=== PATIENT | female | born 1990 | race African-American/Black ===

== ENCOUNTER 2022-12-18 10:39 | Emergency (ER) | payer OTHER, SELFPAY ==
[2022-12-18] VITALS (9 sets, daily range): BP systolic 106–151; BP diastolic 63–93; PULSE 88–98; RESP 14; TEMP 36.8; O2SAT 98–100; BMI 27.4
--- NOTE | 2022-12-18 10:46 | DI.CT.S_ITS ---
PROCEDURE: CT HEAD/BRAIN WO CON INDICATIONS: severe headache TECHNIQUE: Noncontrast 4.5 mm thick angled axial sections acquired from the foramen magnum to the vertex, with coronal and sagittal reformats. For radiation dose reduction, the following was used: automated exposure control, adjustment of mA and/or kV according to patient size. COMPARISON: None. FINDINGS: Image quality: Excellent. CSF spaces: Basal cisterns are patent. No extra-axial fluid collections. Ventricles are normal in size and shape. Brain: No midline shift. No intracranial masses or hemorrhage. Gutierrez-white matter interface is normal. Skull and face: Apparent scalp laceration can be seen posteriorly, with bandaging material. No calvarial fracture is seen. Calvarium and visualized facial bones are intact, without suspicious lesions. Sinuses: Visualized sinuses and mastoids are clear. IMPRESSION: No acute intracranial hemorrhage is seen. No acute intracranial process is seen. Apparent scalp laceration present posteriorly. Dictated by: David Rodriguez M.D. on 12/18/2022 at 10:24 Approved by: David Rodriguez M.D. on 12/18/2022 at 10:25
--- NOTE | 2022-12-18 10:48 | ED.NEUROSD ---
HPI - Neuro Symptoms/Deficit General Chief Complaint: Headache Stated Complaint: intense headache mem loss Time Seen by Provider: 12/18/22 10:46 History of Present Illness HPI Narrative: 32-year-old female nonsmoker without chronic medical history presents with her significant other and a chief complaint of a gradually worsening severe frontal headache that has been worsening since yesterday. She states she has had no trauma or injury, no fever or chills and denies neck pain. She denies blurred vision, trouble with speech or extremity numbness, tingling or weakness. She does get headaches but states this is more severe than normal. She denies any medication or dietary change. She denies the use of blood thinners. She states that she is been having trouble with memory issues for some time and saw her primary care provider few days ago and has a referral in place for a neurology appointment sometime in the next week Related Data Allergies Allergy/AdvReac Type Severity Reaction Status Date / Time No Known Drug Allergies Allergy Verified 12/18/22 10:47 Review of Systems Review of Systems Narrative: GENERAL: Denies chills, fatigue, malaise, fever, sweats. HEENT: Denies sinus pain, ear pain, sore throat, difficulty swallowing, dizziness. RESPIRATORY: Denies dyspnea, cough, wheezing, hemoptysis, sputum. CARDIOVASCULAR: Denies chest pain, palpitations, orthopnea, edema, GASTROINTESTINAL: Denies nausea, vomiting, abdominal pain, diarrhea, constipation, melena. : Denies dysuria, frequency, incontinence, hematuria, urinary retention. MUSCULOSKELETAL: denies weakness, joint pain, or bony pain SKIN: Denies rash, skin lesions, or other NEUROLOGIC: See HPI PSYCHIATRIC: No concerning psychosocial issues. 12 point review of systems is negative except for those stated above Patient History Social History Smoking Status: Unknown if ever smoked Exam Narrative Exam Narrative: GENERAL: [32] year old patient appears stated age. Well-developed patient, in mild distress. Obviously uncomfortable HEAD: Atraumatic. Normocephalic. EYES: Pupils equal round and reactive. Extraocular motions intact. No scleral icterus. No injection or drainage. ENT: Nose without bleeding, purulent drainage. Throat without erythema, tonsillar hypertrophy or exudate. Airway patent. NECK: Trachea midline. Non tender CARDIOVASCULAR: Regular rate and rhythm without murmurs, gallops, or rubs. RESPIRATORY: Clear to auscultation. Breath sounds equal bilaterally. No wheezes, rales, or rhonchi. GASTROINTESTINAL: Abdomen soft, non-tender, nondistended. EXTREMITIES: No edema or joint tenderness. BACK: Nontender without deformity or crepitance. No flank tenderness. NEURO: AOx3. SKIN: No rash or erythema of visible areas NIH Stroke Scale 1a. LOC: Patient is alert and keenly responsive (0) 1b. LOC Questions: Patient answers both LOC questions accurately (0) 1c. LOC Commands: Patient performs both tasks correctly (0) 2. Best Gaze: Normal (0) 3. Visual: No visual loss (0) 4. Facial palsy: Normal symmetrical movements (0) 5. Motor arm: No drift (0) 6. Motor leg: No drift (0) 7. Limb ataxia: Absent (0) 8. Sensory: Normal (0) 9. Best language: No aphasia; normal (0) 10. Dysarthria: Normal (0) 11. Extinction and inattention: No abnormality (0) NIHSS: 0 Initial Vital Signs Initial Vital Signs: Vital Signs Temperature 98.2 F 12/18/22 10:40 Pulse Rate 98 H 12/18/22 10:40 Respiratory Rate 14 12/18/22 10:40 Blood Pressure 144/80 H 12/18/22 10:40 Pulse Oximetry 98 12/18/22 10:40 Oxygen Delivery Method Room Air 12/18/22 10:40 Course Orders Ordered: Discontinued Medications Sodium Chloride (Normal Saline 0.9%) 1,000 mls @ 1,000 mls/hr IV BOLUS ONE Stop: 12/18/22 11:45 Last Infusion: 12/18/22 12:45 Dose: 0 mls/hr Documented By: Infusion: 12/18/22 11:24 Dose: 1,000 mls/hr Documented By: Infusion: 12/18/22 11:10 Dose: 0 mls/hr Documented By: Admin: 12/18/22 11:01 Dose: 1,000 mls/hr Documented By: JESSICA Ketorolac Tromethamine (Ketorolac 30 Mg/Ml Vial) 15 mg IV NOW ONE Stop: 12/18/22 11:30 Last Admin: 12/18/22 11:44 Dose: 15 mg Documented By: JESSICA Metoclopramide HCl (Metoclopramide 10 Mg/2 Ml Inj) 10 mg IV NOW ONE Stop: 12/18/22 10:47 Last Admin: 12/18/22 11:00 Dose: 10 mg Documented By: JESSICA MDM - Neuro Symptoms/Deficit Lab Data 12/18/22 10:50 12/18/22 10:50 Labs: Lab Results 12/18/22 12/18/22 Range/Units 10:50 10:50 WBC 7.7 (4.5-11.0) X10^3/uL RBC 4.17 (4.0-5.2) X10^6/uL Hgb 11.7 L (12.0-16.0) g/dL Hct 34.2 L (36-46) % MCV 82.0 (80-100) fL MCH 27.9 (26-34) PG MCHC 34.1 (30-36) % RDW 13.0 (11.6-14.8) % Plt Count 274 (150-400) X10^3/uL Neut % (Auto) 54.9 (50-75) % Lymph % (Auto) 27.9 (25-40) % [place] % (Auto) 15.5 H (3-14) % Eos % (Auto) 0.6 L (2-4) % Baso % (Auto) 1.1 (0-2) % Neut # (Auto) 4200 (1874-1706) /uL Lymph # (Auto) 2200 (3280-6491) /uL [place] # (Auto) 1200 H (0-900) /uL Eos # (Auto) 0 (0-450) /uL Baso # (Auto) 100 (0-100) /uL Sodium 137 (137-145) mmol/L Potassium 3.4 (3.4-5.1) mmol/L Chloride 104 (98-107) mmol/L Carbon Dioxide 26 (22-32) mmol/L BUN 8 (7-17) mg/dL Creatinine 0.59 (0.52-1.04) mg/dL Estimated GFR > 60 (>60) mL/min BUN/Creatinine Ratio 13.6 (6-22) Glucose 96 (70-100) mg/dL Calcium 9.0 (8.4-10.2) mg/dL Total Bilirubin 0.4 (0.2-1.3) mg/dL AST 23 (14-36) IU/L ALT 17 (<35) IU/L Alkaline Phosphatase 66 (38-126) U/L Total Protein 8.0 (6.3-8.2) g/dL Albumin 4.4 (3.5-5.0) g/dL Globulin 3.6 (1.7-4.1) g/dL Albumin/Globulin Ratio 1.2 (1.0-2.8) MDM Narrative Medical decision making narrative: [32] year old patient presents with frontal headache Headache considerations include, but not limited to: Subarachnoid hemorrhage, but unlikely as patient denies sudden onset of pain, not worst of life, or neck pain Meningitis considered, but thought unlikely given lack of Brudzinski's, Kernig's sign, altered mental status or fever Giant cell arteritis considered, but thought unlikely given lack of unilateral findings, pain in lutheran, vision change HTN Emergency considered, but thought unlikely given normal vitals Other serious diagnoses considered unlikely given lack of red flag findings such as sudden onset, increasing frequency, immunocompromise, systemic signs (fever, chills, stiff neck, or rash), focal neurologic findings, trauma, blood thinners, etc. No prior charts are available Primary Historian: patient Labs reviewed and interpreted by myself: No leukocytosis or left shift, no anemia, electrolytes and renal function within normal Imaging reviewed: CT of head ordered given severe headache. No intracranial findings Patient's symptoms improved over duration of stay with above-stated therapies. As noted above multiple diagnoses considered. Migraine or migraine equivalent considered most likely given history, physical exam, response to therapies Findings and discharge diagnosis discussed with patient/family followed by verbalization of understanding Return precautions discussed with patient/family whom verbalize understanding of diagnosis and plan Discharge Plan Departure Patient Disposition: Home Clinical Impression: Migraine Instructions: DI for Migraine Activity Restrictions/Additional Instructions: *You have been diagnosed with [ Headache ] *What to do: *Take medications as directed *Follow up with your primary care provider in 2-3 days, call for an appointment. Let them know you were seen in the Emergency Department and that we ask that you be seen in follow up *Return to ER if you should have any new, worsening or concerning symptoms, such as [ fever > 101F, neck pain or stiffness, vomiting, confusion, seizure, focal weakness, vision change, speech deficit or other concerning symptoms ] Referrals: ProviderAlbert [Primary Care Provider] - Stand Alone Forms: Patient Portal/API, Work Release Note
[2022-12-18 10:59] LABS: Add Manual Diff / Slide Review NO; Basophils Absolute Auto 100 /uL (0-100); Basophils Percent Auto 1.1 % (0-2); Eosinophils Absolute Auto 0 /uL (0-450); Eosinophils Percent Auto 0.6 % (2-4); Hematocrit 34.2 % (36-46); Hemoglobin 11.7 g/dL (12.0-16.0); Lymphocytes Absolute Auto 2200 /uL (1100-4500); Lymphocytes Percent Auto 27.9 % (25-40); Mean Corpuscular HGB Conc 34.1 % (30-36); Mean Corpuscular Hemoglobin 27.9 PG (26-34); Monocytes Absolute Auto 1200 /uL (0-900); Monocytes Percent Auto 15.5 % (3-14); Neutrophils Absolute Auto 4200 /uL (1500-7000); Neutrophils Percent Auto 54.9 % (50-75); Platelet Count 274 X10^3/uL (150-400); Red Blood Cell Count 4.17 X10^6/uL (4.0-5.2); White Blood Cell Count 7.7 X10^3/uL (4.5-11.0)
[2022-12-18] MEDS: METOCLOPRAMIDE 10 MG/2 ML INJ IV (11:00)
[2022-12-18] MEDS: SODIUM CHLORIDE 0.9% 1,000 ML 1000 ML IV (11:01)
[2022-12-18 11:17] LABS: Alanine Aminotransferase 17 IU/L (<35); Albumin 4.4 g/dL (3.5-5.0); Albumin Globulin Ratio 1.2 (1.0-2.8); Alkaline Phosphatase 66 U/L (38-126); Aspartate Aminotransferase 23 IU/L (14-36); BUN Creatinine Ratio 13.6 (6-22); Bilirubin Total 0.4 mg/dL (0.2-1.3); Blood Urea Nitrogen 8 mg/dL (7-17); Carbon Dioxide 26 mmol/L (22-32); Chloride 104 mmol/L (98-107); Estimated Glomerular Filt Rate > 60 mL/min (>60); Globulin 3.6 g/dL (1.7-4.1); Glucose 96 mg/dL (70-100); HEMOLYSIS < 15 (0-50); Potassium 3.4 mmol/L (3.4-5.1); Sodium 137 mmol/L (137-145)
[2022-12-18] MEDS: KETOROLAC 30 MG/ML VIAL 15 MG IV (11:44)
== END 2022-12-18 12:59 | disposition home or self-care (01) ==
PROVIDERS: Emergency Provider Emergency Medicine
DX: G43.909 Migraine, unspecified, not intractable, without status migrainosus (principal)
CPT/HCPCS: 36415; 70450; 80053; 85025; 96361; 96374; 96375; 99284; J1885; J2765

== ENCOUNTER 2024-11-09 12:29 | Emergency (ER) | payer OTHER, SELFPAY ==
--- NOTE | 2024-11-09 12:45 | ED.GENADULT ---
HPI - General Adult <Thanh Gilliam MD - Last Filed: 11/13/24 18:31> General Chief complaint: Psychiatric Symptoms Stated complaint: SI Time Seen by Provider: 11/09/24 12:45 History of Present Illness HPI narrative: This is a 34-year-old female here for mental health evaluation. Patient has a history of depression and had a follow-up visit with her psychiatrist today to discuss her symptoms as well as refill on medications. She was prescribed 2 antidepressants in September and unfortunately missed an appointment last month and was not able to fill the prescription and has been off for at least a month. She reports that the medications did not help with her depression and actually caused side effects of making her excessively sleepy and feeling like a zombie. She has never been on psychiatric medications in the past. At her visit with her psychiatrist today, she reported suicidal ideation and was sent to the emergency room for further evaluation. Her psychiatrist had contacted [facility] for a planned transfer for inpatient psychiatric care. Patient does admit to suicidal ideation at least a few weeks ago and did not want to disclose the method by which she would carry that out. She reports increasing her alcohol intake recently and currently drinking 3 to 4 times a week, 3-4 shots of Tequila per session. She denies any illicit drug use. She currently is and their relationship is good. She denies fever, cough, congestion, chest pain, shortness of breath. She does admit to intermittent abdominal pain today although none currently. She has vomited 4 times. She reports no bowel movement for 2-3 weeks although did have diarrhea today. She denies taking stool softeners earlier today. Last menstrual period was 2-3 weeks ago. She is not on any control. . No dysuria. Related Data Allergies Allergy/AdvReac Type Severity Reaction Status Date / Time No Known Drug Allergies Allergy Verified 12/18/22 10:47 Review of Systems <Thanh Gilliam MD - Last Filed: 11/13/24 18:31> Review of Systems ROS Unobtainable: All systems reviewed & are unremarkable except as noted in HPI and below Patient History <Thanh Gilliam MD - Last Filed: 11/13/24 18:31> alcohol intake frequency: holidays/special occasions only Exam <Thanh Gilliam MD - Last Filed: 11/13/24 18:31> Narrative Exam Narrative: Focused physical exam as follows: General: Well developed, well nourished HEENT: pink palpebral conjunctiva, anicteric sclera, LIYAH, moist mucous membranes Lungs; no respiratory distress, clear to auscultation without wheezes or crackles; equal breath sounds Heart: normal rate, regular rhythm, no appreciable murmurs Abdomen: soft, nontender, no rebound or rigidity Extremities: no pedal edema Neuro: AAOx3, GCS 15, nonfocal exam Psyche: suicidal ideation; depression, auditory hallucinations Initial Vital Signs Initial Vital Signs: Vital Signs Temperature 97.1 F L 11/09/24 12:47 Pulse Rate 99 H 11/09/24 12:47 Respiratory Rate 20 11/09/24 12:47 Blood Pressure 140/77 11/09/24 12:47 Pulse Oximetry 99 11/09/24 12:47 Oxygen Delivery Method Room Air 11/09/24 12:47 <Ashleigh Brandt MD - Last Filed: 11/09/24 21:31> Initial Vital Signs Initial Vital Signs: Vital Signs Temperature 97.1 F L 11/09/24 12:47 Pulse Rate 99 H 11/09/24 12:47 Respiratory Rate 20 11/09/24 12:47 Blood Pressure 140/77 11/09/24 12:47 Pulse Oximetry 99 11/09/24 12:47 Oxygen Delivery Method Room Air 11/09/24 12:47 Course <Thanh Gilliam MD - Last Filed: 11/13/24 18:31> Course Course Narrative: Pt arrived and was initially evaluated by MANAGER WAREHOUSE - she disclosed auditory hallucinations and recent SI. Charge Nurse had spoken to pt's psychiatrist who expressed serious concerns regarding pt's depression and SI and recommended transfer to [facility] for inpt psyche treatment. Pt is voluntary. Medical screening exam done. Work up initiated. Labs unremarkable. Pt medically cleared and SW informed. [id number] - awaiting [facility] doc to doc call for transfer acceptance Discussed case with Capt Mita @ [facility] - accepts pt. Transferred care to Dr. Brandt @ [phone] with disposition pending. Thanh Gilliam MD 11/09/24 5023 Orders Ordered: ED Orders 11/09/24 12:47 Consult to MANAGER WAREHOUSE - Buffet Server Stat 11/09/24 13:39 Complete Blood Count AUTO DIFF Stat Comprehensive Metabolic Panel Stat Ethanol (ETOH) Stat Free T4, Direct Thyroxine Stat Test Serum,Qual Stat TSH w/ Reflex to FT4 Stat 11/09/24 13:50 Urine Drug Screen, Rapid Stat Urine Microscopic Stat Vital Signs Vital signs: Vital Signs - 8 hr 11/09/24 17:03 Pulse Rate 91 H Respiratory Rate 18 Blood Pressure 135/75 Pulse Oximetry 98 Oxygen Delivery Method Room Air <Ashleigh Brandt MD - Last Filed: 11/09/24 21:31> Course Additional Information: Patient was successfully transferred to [facility] at 17:19 without incident. Orders Ordered: ED Orders 11/09/24 12:47 Consult to MANAGER WAREHOUSE - Buffet Server Stat 11/09/24 13:39 Complete Blood Count AUTO DIFF Stat Comprehensive Metabolic Panel Stat Ethanol (ETOH) Stat Free T4, Direct Thyroxine Stat Test Serum,Qual Stat TSH w/ Reflex to FT4 Stat 11/09/24 13:50 Urine Drug Screen, Rapid Stat Urine Microscopic Stat Vital Signs Vital signs: Vital Signs - 8 hr 11/09/24 17:03 Pulse Rate 91 H Respiratory Rate 18 Blood Pressure 135/75 Pulse Oximetry 98 Oxygen Delivery Method Room Air Medical Decision Making <Thanh Gilliam MD - Last Filed: 11/13/24 18:31> Lab Data 11/09/24 13:39 11/09/24 13:39 Labs: Lab Results 11/09/24 11/09/24 Range/Units 13:39 13:50 WBC 10.8 (4.5-11.0) X10^3/uL RBC 4.69 (4.0-5.2) X10^6/uL Hgb 11.6 L (12.0-16.0) g/dL Hct 35.5 L (36-46) % MCV 75.7 L (80-100) fL MCH 24.8 L (26-34) PG MCHC 32.8 (30-36) % RDW 17.3 H (11.6-14.8) % Plt Count 294 (150-400) X10^3/uL Neut % (Auto) 86.5 H (50-75) % Lymph % (Auto) 8.1 L (25-40) % [place] % (Auto) 4.5 (3-14) % Eos % (Auto) 0.5 L (2-4) % Baso % (Auto) 0.4 (0-2) % Neut # (Auto) 9300 H (5905-2365) /uL Lymph # (Auto) 900 L (9550-8201) /uL [place] # (Auto) 500 (0-900) /uL Eos # (Auto) 100 (0-450) /uL Baso # (Auto) 0 (0-100) /uL Sodium 136 L (137-145) mmol/L Potassium 3.7 (3.4-5.1) mmol/L Chloride 104 (98-107) mmol/L Carbon Dioxide 24 (22-32) mmol/L BUN 9 (7-17) mg/dL Creatinine 0.61 (0.52-1.04) mg/dL Estimated GFR > 60 (>60) mL/min BUN/Creatinine Ratio 14.8 (6-22) Glucose 107 H (70-99) mg/dL Calcium 9.3 (8.4-10.2) mg/dL Total Bilirubin 0.7 (0.2-1.3) mg/dL AST 25 (14-36) IU/L ALT 19 (<35) IU/L Alkaline Phosphatase 65 (38-126) U/L Total Protein 8.0 (6.3-8.2) g/dL Albumin 4.6 (3.5-5.0) g/dL Globulin 3.4 (1.7-4.1) g/dL Albumin/Globulin Ratio 1.4 (1.0-2.8) TSH 0.39 L (0.47-4.68) uIU/mL Free T4 1.13 (0.78-2.19) ng/dL Serum , Qual Negative (Negative) Urine RBC 1-5/hpf (0-5/HPF) Urine WBC None seen (0-5/HPF) Ur Squamous Epith Cells 1-5 /hpf (0-5/HPF) Urine Bacteria Few (2-10) H (None) Ur Culture Indicated? Cult not indicated Vol Urine Centrifuged 10ml (spun) U Opiates 300ng/mL cut Negative (Negative) Ur Oxycodone Screen Negative (Negative) Urine Methadone Screen Negative (Negative) Ur Barbiturates Screen Negative (Negative) U Tricyclic Antidepress Negative (Negative) Ur Phencyclidine Scrn Negative (Negative) Ur Amphetamines Screen Negative (Negative) U Methamphetamines Scrn Negative (Negative) Ur MDMA Scrn (Ecstasy) Negative (Negative) U Benzodiazepines Scrn Negative (Negative) Urine Cocaine Screen Negative (Negative) U Marijuana (THC) Screen Negative (Negative) Urine pH Normal (Normal) Urine Specific [place] Normal (Normal) Ethyl Alcohol < 10 ( - 10) mg/dL Ur Creatinine Normal (Normal) Point of Care Testing Test Results Negative Urine Dip Bedside Urine Glucose Negative Bedside Urine Bilirubin - Negative Bedside Urine Ketone - Negative Urine Specific [place] 1.015 Bedside Urine Occult Blood + Bedside Urine pH 7.5 Bedside Urine Protein - Negative Bedside Urine Urobilinogen +/- 1mg Bedside Urine Nitrite - Negative Bedside Urine Leukocytes - Negative Esterase Point of care testing: Point of Care Testing Test Results Negative Urine Dip Bedside Urine Glucose Negative Bedside Urine Bilirubin - Negative Bedside Urine Ketone - Negative Urine Specific [place] 1.015 Bedside Urine Occult Blood + Bedside Urine pH 7.5 Bedside Urine Protein - Negative Bedside Urine Urobilinogen +/- 1mg Bedside Urine Nitrite - Negative Bedside Urine Leukocytes - Negative Esterase <Ashleigh Brandt MD - Last Filed: 11/09/24 21:31> Differential Diagnosis Differential Diagnosis: depression vs suicidal ideation vs suicidal intent. Lab Data Labs: Lab Results 11/09/24 11/09/24 Range/Units 13:39 13:50 WBC 10.8 (4.5-11.0) X10^3/uL RBC 4.69 (4.0-5.2) X10^6/uL Hgb 11.6 L (12.0-16.0) g/dL Hct 35.5 L (36-46) % MCV 75.7 L (80-100) fL MCH 24.8 L (26-34) PG MCHC 32.8 (30-36) % RDW 17.3 H (11.6-14.8) % Plt Count 294 (150-400) X10^3/uL Neut % (Auto) 86.5 H (50-75) % Lymph % (Auto) 8.1 L (25-40) % [place] % (Auto) 4.5 (3-14) % Eos % (Auto) 0.5 L (2-4) % Baso % (Auto) 0.4 (0-2) % Neut # (Auto) 9300 H (4878-0178) /uL Lymph # (Auto) 900 L (6617-0201) /uL [place] # (Auto) 500 (0-900) /uL Eos # (Auto) 100 (0-450) /uL Baso # (Auto) 0 (0-100) /uL Sodium 136 L (137-145) mmol/L Potassium 3.7 (3.4-5.1) mmol/L Chloride 104 (98-107) mmol/L Carbon Dioxide 24 (22-32) mmol/L BUN 9 (7-17) mg/dL Creatinine 0.61 (0.52-1.04) mg/dL Estimated GFR > 60 (>60) mL/min BUN/Creatinine Ratio 14.8 (6-22) Glucose 107 H (70-99) mg/dL Calcium 9.3 (8.4-10.2) mg/dL Total Bilirubin 0.7 (0.2-1.3) mg/dL AST 25 (14-36) IU/L ALT 19 (<35) IU/L Alkaline Phosphatase 65 (38-126) U/L Total Protein 8.0 (6.3-8.2) g/dL Albumin 4.6 (3.5-5.0) g/dL Globulin 3.4 (1.7-4.1) g/dL Albumin/Globulin Ratio 1.4 (1.0-2.8) TSH 0.39 L (0.47-4.68) uIU/mL Free T4 1.13 (0.78-2.19) ng/dL Serum , Qual Negative (Negative) Urine RBC 1-5/hpf (0-5/HPF) Urine WBC None seen (0-5/HPF) Ur Squamous Epith Cells 1-5 /hpf (0-5/HPF) Urine Bacteria Few (2-10) H (None) Ur Culture Indicated? Cult not indicated Vol Urine Centrifuged 10ml (spun) U Opiates 300ng/mL cut Negative (Negative) Ur Oxycodone Screen Negative (Negative) Urine Methadone Screen Negative (Negative) Ur Barbiturates Screen Negative (Negative) U Tricyclic Antidepress Negative (Negative) Ur Phencyclidine Scrn Negative (Negative) Ur Amphetamines Screen Negative (Negative) U Methamphetamines Scrn Negative (Negative) Ur MDMA Scrn (Ecstasy) Negative (Negative) U Benzodiazepines Scrn Negative (Negative) Urine Cocaine Screen Negative (Negative) U Marijuana (THC) Screen Negative (Negative) Urine pH Normal (Normal) Urine Specific [place] Normal (Normal) Ethyl Alcohol < 10 ( - 10) mg/dL Ur Creatinine Normal (Normal) Point of Care Testing Test Results Negative Urine Dip Bedside Urine Glucose Negative Bedside Urine Bilirubin - Negative Bedside Urine Ketone - Negative Urine Specific [place] 1.015 Bedside Urine Occult Blood + Bedside Urine pH 7.5 Bedside Urine Protein - Negative Bedside Urine Urobilinogen +/- 1mg Bedside Urine Nitrite - Negative Bedside Urine Leukocytes - Negative Esterase Point of care testing: Point of Care Testing Test Results Negative Urine Dip Bedside Urine Glucose Negative Bedside Urine Bilirubin - Negative Bedside Urine Ketone - Negative Urine Specific [place] 1.015 Bedside Urine Occult Blood + Bedside Urine pH 7.5 Bedside Urine Protein - Negative Bedside Urine Urobilinogen +/- 1mg Bedside Urine Nitrite - Negative Bedside Urine Leukocytes - Negative Esterase Discharge Plan Departure Patient Disposition: Xfer Psychiatric Hosp Clinical Impression: Suicidal ideation Depression Qualifiers: Depression Type: major depressive disorder Major depression recurrence: recurrent Active/Remission status: currently active Major depression episode severity: severe Psychotic features: with psychotic features Qualified Code(s): F33.3 - Major depressive disorder, recurrent, severe with psychotic symptoms Nausea & vomiting Qualifiers: Vomiting type: unspecified Qualified Code(s): R11.2 - Nausea with vomiting, unspecified Activity Restrictions/Additional Instructions: Transfer to [facility] for inpt psychiatric care - Capt Fan ([facility] [place]) accepting provider Referrals: ProviderAlbert [Primary Care Provider] -
[2024-11-09 12:47] VITALS: BP 140/77; PULSE 99; RESP 20; TEMP 36.2; O2SAT 99
[2024-11-09 13:46] LABS: Add Manual Diff / Slide Review NO; Basophils Absolute Auto 0 /uL (0-100); Basophils Percent Auto 0.4 % (0-2); Eosinophils Absolute Auto 100 /uL (0-450); Eosinophils Percent Auto 0.5 % (2-4); Hematocrit 35.5 % (36-46); Hemoglobin 11.6 g/dL (12.0-16.0); Lymphocytes Absolute Auto 900 /uL (1100-4500); Lymphocytes Percent Auto 8.1 % (25-40); Mean Corpuscular HGB Conc 32.8 % (30-36); Mean Corpuscular Hemoglobin 24.8 PG (26-34); Mean Corpuscular Volume 75.7 fL (80-100); Monocytes Absolute Auto 500 /uL (0-900); Monocytes Percent Auto 4.5 % (3-14); Neutrophils Absolute Auto 9300 /uL (1500-7000); Neutrophils Percent Auto 86.5 % (50-75); Platelet Count 294 X10^3/uL (150-400); Red Blood Cell Count 4.69 X10^6/uL (4.0-5.2); Red Cell Distribution Width 17.3 % (11.6-14.8); White Blood Cell Count 10.8 X10^3/uL (4.5-11.0)
[2024-11-09 14:09] LABS: Alanine Aminotransferase 19 IU/L (<35); Albumin 4.6 g/dL (3.5-5.0); Albumin Globulin Ratio 1.4 (1.0-2.8); Alkaline Phosphatase 65 U/L (38-126); Aspartate Aminotransferase 25 IU/L (14-36); BUN Creatinine Ratio 14.8 (6-22); Bilirubin Total 0.7 mg/dL (0.2-1.3); Blood Urea Nitrogen 9 mg/dL (7-17); Calcium 9.3 mg/dL (8.4-10.2); Carbon Dioxide 24 mmol/L (22-32); Chloride 104 mmol/L (98-107); Estimated Glomerular Filt Rate > 60 mL/min (>60); Ethanol (ETOH) < 10 mg/dL; Globulin 3.4 g/dL (1.7-4.1); Glucose 107 mg/dL (70-99); HEMOLYSIS < 15 (0-50); Potassium 3.7 mmol/L (3.4-5.1); Sodium 136 mmol/L (137-145)
--- NOTE | 2024-11-09 14:19 | CM.SWNOTE ---
ED CLOTHESPIN DRIER OPERATOR Assessment Note CLOTHESPIN DRIER OPERATOR - Whipped Topping Finisher Assessment CLOTHESPIN DRIER OPERATOR/Whipped Topping Finisher Assessment Time Spent with Patient Start date 11/09/24 Visit Start Time 12:40 End date 11/09/24 Visit End Time 13:20 Total time Care Management spent on 40 minutes patient visit-in minutes Mental Health Screening Include Onset, Duration, Intensity Presenting Problem Patient presents to ED via [facility] after Psychiatry appt with [facility]. Patient endorsed hx of SI and it was recommended patient present to the ED. Precipitating Event(s) Patient has been experiencing concerns for memory loss, impacted sleep and concern for SI. Patient states she was prescribed an antidepressant and was on the medication for a month and then missed an appt and has been off of the medication for a month. Patient went to appt today hoping to get refill. Patient endorses concern for seeing and hearing spirits and states that she is concerned that she will be judged and people will think she is crazy. Patient endorses that she sees and hears good spirits and bad spirts and that bad spirits in the past have been negative in nature telling patient to kill self. Patient endorses that she engages in prayer and meditation to prevent SI. Patient states that these spirits have jolted her awake in the middle of the night and she has filmed footage of orbs and flashes of light. Patient endorses that due to lack of sleep and memory loss it has impacted patient's daily functioning. Patient endorses she feels like her psychiatrist is hostile and does not trust telling psychiatrist about patient's premonitions. Patient Strengths Patient has supportive who drove here to be with patient from their residence in [place]. Current Behavioral Health Provider(s) Patient sees [facility] Include Facility, Provider, Ph. # Dr. Ashlie Aponte at [facility] (Ph. # ) Psych. Hx Mental Health and Chemical Patient endorses hx of MDD, Dependency patient endorses thoughts of SI, patient states she does not want to have these thoughts. Patient endorses hx of seeing and hearing spirits and paranormal activity. Patient endorses increased alcohol intake recently and currently drinking 3 to 4 times a week, 3-4 shots of Tequila per session, patient denies any other substance use . Patient was prescribed Clonazepam 0.5mg and fluoxetine HCl 20 mg, but has not had refill since initial rx. Patient states medication made her feel tired and fatigued. Family Hx of Behavioral Abuse None reported Psychiatric Hospitalizations (date(s)/ No hx. location) Psychosocial information & Support Patient is 34 y/o female who Systems resides in [place] with spouse . Patient's spouse is a good support to patient. 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 Legal Concerns Legal Matters - Outstanding Issues None reported. Mental Status Orientation (Person/Place/Time) A/Ox4 Stated Mood I want help, I don't feel comfortable talking about it Affect (Congruent with Mood?) tearful at times, anxious, euthymic. Thought Content - Specify/Describe Patient endorses that she has Obsessions, Delusions, Hallucinations not told anyone in detail about her premonitions and about the spirits she hears and sees. Patient shows CLOTHESPIN DRIER OPERATOR video footage of patient waking up in the middle of the night jolted out of bed, footage of lights and orbs, in video patient talks to spirits. Patient is very tearful and concerned that she will be labeled as crazy. Patient endorses that most of the spirits are good but a few weeks ago there was a bad spirit that told her to kill herself. Patient states that the bad spirits have been less common, patient states prayer and medication has helped. Thought Processes (Xgezlvu-Osmmqegu-Lduk coherent Wwjlplvc-Sgqgqngz-Mpltwiztyv- Naabhpsyrauclv-Ulbgmgm-Vmfcsaezlaye- Thought Blocking) Speech (Bfzmqo-Xoib-Pvbicmu-Rapid-Soft- normal Loud-Pressured) Motor (Otdepn-Diqigiucx-Cydj-Other) normal Insight (Ezfk-Ifzk-Nsjt/Limited) fair Judgement (Qbvm-Ozkz-Hnbj/Limited) fair Impulse Control (Adequate-Impaired) adequate Memory (Feqssfpsb-Vtonhy-Umwhqy, Patient endorses that her Impaired-Intact) memory is greatly impacted and that she has gaps of time that she does not remember. Concentration (Intact-Impaired) intact Attention (Intact-Impaired) intact Behavior (Appropriate-Inappropriate) appropriate Additional Comment Patient presents as calm, cooperative and communicative. Risk Assessment Suicidal Ideation (Plan) Yes Homicidal Ideation (Plan) No Comment Patient denies current SI, patient denies intent or plan to kill self, patient states that she experienced SI from the voices she was hearing a week or so ago and patient attempts to halt these thoughts with use of prayer and medication. Patient does not tell CLOTHESPIN DRIER OPERATOR the thoughts of plans that she has thought of in the past and continues to state her goal to stop the thoughts. Intervention Intervention CLOTHESPIN DRIER OPERATOR enters room to meet with patient. Patient presents as tearful at times when discussing things that she is typically private about, out of concern for being judged and misunderstood . Patient states that she has experienced SI in recent weeks , concern for memory loss, lack of sleep. Patient endorses concern for support from her command and her current psychiatrist. CLOTHESPIN DRIER OPERATOR discusses these concerns and how they are impacting her daily life. CLOTHESPIN DRIER OPERATOR discusses voluntary inpatient hospitalization at [facility] and patient endorses agreement and understanding. It is the opinion of this CLOTHESPIN DRIER OPERATOR that would benefit from further psychiatric and medical evaluation at a facility due to concern for stabilization and medication management. CLOTHESPIN DRIER OPERATOR reviews this with ED provider Dr. Fernandez who indicates agreement and understanding. intelligence senior sergeant speaks with patient' s psychiatrist who recommends inpatient hospitalization at [facility] and states that she has provided report at [facility]. Plan RA Plan CLOTHESPIN DRIER OPERATOR to reach out to [facility] for inpatient hospitalization upon medical clearance. Tammie Encarnacion, JEANNE
[2024-11-09 14:34] LABS: Ur Creatinine Normal (Normal); Ur Specific Gravity Normal (Normal); Urine Amphetamines Negative (Negative); Urine Barbiturates Negative (Negative); Urine Benzodiazepines Negative (Negative); Urine Cocaine Negative (Negative); Urine MDMA Negative (Negative); Urine Methadone Negative (Negative); Urine Opiates Negative (Negative); Urine Oxycodone Negative (Negative); Urine Phencyclidine Negative (Negative); Urine THC Negative (Negative); Urine Tricyclic Antidepressant Negative (Negative); Urine pH Normal (Normal)
[2024-11-09 14:37] LABS: Pregnancy Test Serum,Qual Negative (Negative)
[2024-11-09 14:43] LABS: Bacteria Urine Few (2-10); Culture Indicated Urine Cult Not Indicated; RBC Urine 1-5/HPF (0-5/HPF); Squamous Epithelial Cell Urine 1-5 /HPF (0-5/HPF); Urine Volume 10mL (spun); WBC Urine None Seen (0-5/HPF)
[2024-11-09 14:47] LABS: TSH w/ Reflex to FT4 0.39 uIU/mL (0.47-4.68)
[2024-11-09 15:32] LABS: Free T4, Direct Thyroxine 1.13 ng/dL (0.78-2.19)
--- NOTE | 2024-11-09 16:54 | CM.SWNOTE ---
ED ELECTRICIAN AIRCRAFT Note ELECTRICIAN AIRCRAFT calls Tessie regarding patient and faxes clinicals for review. Tessie conducts doc to doc with ED provider, it is reported that patient is accepted by Cpt. Mita. Intake is SgtVeronica Gutierrez, it is reported that patient can arrive at any time. RN to RN is [phone]. ELECTRICIAN AIRCRAFT calls [facility] and schedules transport for 1700. ELECTRICIAN AIRCRAFT informs this to patient, present with patient is spouse and command officer. All parties indicate agreement and understanding. Plan: patient to transfer to [facility] for inpatient hospitalization via BLS this evening. TREVON TylerSW
[2024-11-09 17:03] VITALS: BP 135/75; PULSE 91; RESP 18; O2SAT 98
== END 2024-11-09 17:12 ==
PROVIDERS: Emergency Medicine; Emergency Provider Emergency Medicine
DX: R45.851 Suicidal ideations (principal); F33.3 Major depressive disorder, recurrent, severe with psychotic symptoms; R11.2 Nausea with vomiting, unspecified
CPT/HCPCS: 36415; 80053; 80305; 80320; 81003; 81015; 81025; 84439; 84443; 84703; 85025; 99283